=== PATIENT | male | born 1970 | race Caucasian/White ===

== ENCOUNTER 2019-02-04 08:28 | Emergency (ER) | payer MEDICAID ==
[~2019-02-04] VITALS: Ht 172.7 cm; Wt 86.2 kg
[2019-02-04 08:36] VITALS: BP 150/96
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
--- NOTE | 2019-02-04 08:45 | NUR ---
DR. BUTT EVALUATING AT BEDSIDE. PT UNWILLING TO ANSWER QUESTIONS.
--- NOTE | 2019-02-04 08:46 | NUR ---
PT WAS GIVEN A URINAL TO OBTAIN URINE SPECIMEN.
[2019-02-04] MEDS ORDERED: MORPHINE SULFATE 4 MG/ML SYR IM ONE (09:20)
[2019-02-04] MEDS ORDERED: cefTRIAXone 1,000 MG in LIDOCAINE MPF 1% - 5 mL VIAL 2.1 ML IM ONE (09:20)
--- NOTE | 2019-02-04 09:56 | NUR ---
PT RE-EVALUATED FOR KNEE PAIN. PT SLEEPING ON GURNEY.
--- NOTE | 2019-02-04 14:30 | NUR ---
Patient discharged with v/s stable. Written and verbal after care instructions given and explained. Patient alert, oriented and verbalized understanding of instructions. ASSISSTED BY WHEELCHAIR TO TAXI. All questions addressed prior to discharge. ID band removed. Patient advised to follow up with PMD. Rx of given. Patient educated on indication of medication including possible reaction and side effects. Opportunity to ask questions provided and answered.
[2019-02-04 14:40] VITALS: BP 148/92
== END 2019-02-04 14:30 | disposition home or self-care (01) ==
LOC: MED 08:28
DX: L03.116 Cellulitis of left lower limb (principal)
CPT/HCPCS: 96372; 99283; J0696; J2001; J2270

== ENCOUNTER 2019-02-04 18:08 | Emergency (ER) | payer MEDICAID ==
[~2019-02-04] VITALS: Ht 175.3 cm; Wt 81.6 kg
[2019-02-04 18:10] VITALS: BP 150/85
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
--- NOTE | 2019-02-04 18:31 | NUR ---
DR BUTT AT BEDSIDE FOR PT EVALUATION.
[2019-02-04 18:37] VITALS: BP 111/72
--- NOTE | 2019-02-04 18:37 | NUR ---
DR BUTT SIGNED PREBOOK FORM, PT CLEARED TO BE BOOKED
--- NOTE | 2019-02-04 18:37 | NUR ---
Patient discharged with v/s stable. Written and verbal after care instructions given and explained. Patient verbalized understanding. Wheel Chair Assisted with in custody. All questions addressed prior to discharge. Advised to follow up with PMD.
== END 2019-02-04 18:37 ==
LOC: MED 18:08
DX: L03.116 Cellulitis of left lower limb (principal); Z98.890 Other specified postprocedural states
CPT/HCPCS: 99283

== ENCOUNTER 2021-07-01 10:16 | Emergency (ER) | payer MEDICAID ==
[~2021-07-01] VITALS: Ht 175.3 cm; Wt 65.8 kg
[2021-07-01 10:18] VITALS: BP 127/83
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
--- NOTE | 2021-07-01 12:20 | NUR ---
PATIENT PROVIDED WITH LUNCH TRAY
[2021-07-01] MEDS: HYDROcodone/APAP 5/325 MG 1 TAB TAB PO ONE (12:23)
[2021-07-01] MEDS ORDERED: IBUP-1842 PO (12:27)
[2021-07-01 12:48] VITALS: BP 124/92
--- NOTE | 2021-07-01 12:55 | NUR ---
Patient discharged with v/s stable. Written and verbal after care instructions given and explained ABOUT ACUTE KNEE PAIN. Patient alert, oriented and verbalized understanding of instructions. Wheel Chair Assisted TO PARKING LOT. All questions addressed prior to discharge. ID band removed. Patient advised to follow up with PMD. Rx of IBUPROFEN given. Patient educated on indication of medication including possible reaction and side effects. Opportunity to ask questions provided and answered. PATIENT OFFERED BUS PASS BUT DECLINED.
== END 2021-07-01 12:55 | disposition home or self-care (01) ==
LOC: MED 10:16
DX: M25.561 Pain in right knee (principal); M25.562 Pain in left knee; M25.571 Pain in right ankle and joints of right foot; M25.572 Pain in left ankle and joints of left foot; V03.10XA Pedestrian on foot injured in collision with car, pick-up truck or van in traffic accident, initial encounter; Y93.89 Activity, other specified; Y92.89 Other specified places as the place of occurrence of the external cause; Y99.8 Other external cause status
CPT/HCPCS: 73562; 73610; 99284

== ENCOUNTER 2021-07-02 08:58 | Emergency (ER) | payer MEDICAID ==
[~2021-07-02] VITALS: Ht 175.3 cm; Wt 74.8 kg
[~2021-07-02 08:58] MED LIST: IBUP-1842 PO
[2021-07-02 09:05] VITALS: BP 127/77
[2021-07-02] MEDS ORDERED: KETOROLAC 60 MG/2 ML VIAL IM ONE ×2 (09:20)
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
[2021-07-02 09:33] VITALS: BP 127/77
--- NOTE | 2021-07-02 09:34 | NUR ---
PATIENT [facility]ICE DEPT. PATIENT EXAMINED BY DR. BUTT. PATIENT MEDICALLY CLEARED AND RELEASED IN CUSTODY IN STABLE CONDITION. ORIGINAL PRE-BOOK FORM GIVEN TO OFFICER ARNAV.
== END 2021-07-02 09:33 ==
LOC: MED 08:58
DX: M25.561 Pain in right knee (principal); M25.562 Pain in left knee; J45.909 Unspecified asthma, uncomplicated; Z02.89 Encounter for other administrative examinations; Z79.899 Other long term (current) drug therapy; Z98.890 Other specified postprocedural states; V09.9XXA Pedestrian injured in unspecified transport accident, initial encounter; Y93.89 Activity, other specified; Y92.89 Other specified places as the place of occurrence of the external cause; Y99.8 Other external cause status
CPT/HCPCS: 96372; 99283; J1885

== ENCOUNTER 2021-10-08 14:15 | Emergency (ER) | payer MEDICAID ==
[~2021-10-08] VITALS: Ht 175.3 cm; Wt 69.9 kg
[2021-10-08 15:00] VITALS: BP 129/75
[2021-10-08 16:28] LABS: BASOPHILS % (AUTO) 0.5 % (0.0-2.0); EOSINOPHILS # (AUTO) 0.3 K/uL (0-0.4); EOSINOPHILS % (AUTO) 4.2 % (0.0-4.0); HEMATOCRIT 34.7 % (36-52); HEMOGLOBIN 11.5 g/dL (12.0-18.0); LYMPHOCYTES # (AUTO) 1.3 K/uL (2.0-11.5); LYMPHOCYTES % (AUTO) 16.8 % (20.5-51.1); MEAN CORPUSCULAR HEMOGLOBIN 27 pg (27-31); MEAN CORPUSCULAR HGB CONC 33 g/dL (33-37); MEAN CORPUSCULAR VOLUME 81.1 fL (80-94); MONOCYTES # (AUTO) 0.5 K/uL (0.8-1.0); MONOCYTES % (AUTO) 6.3 % (1.7-9.3); NEUTROPHILS # (AUTO) 5.4 K/uL (1.8-7.7); NEUTROPHILS % (AUTO) 72.2 % (42.2-75.2); PLATELET COUNT (AUTO) 319 K/uL (140-450); RED BLOOD CELL COUNT(AUTO) 4.28 MIL/uL (4.20-6.10); RED CELL DISTRIBUTION WIDTH 15.6 % (11.6-13.7); WHITE BLOOD COUNT (AUTO) 7.5 K/uL (4.8-10.8)
[2021-10-08] MEDS ORDERED: MORPHINE SULFATE 4 MG/ML SYR IVP ONE (16:35)
[2021-10-08 16:54] LABS: ALBUMIN 3.4 g/dL (3.4-5.0); ANION GAP 8.4 (8-16); CARBON DIOXIDE 31.6 mmol/L (21-32); CREATININE 0.7 mg/dL (0.6-1.3); TOTAL BILIRUBIN 0.3 mg/dL (0.0-1.0)
[2021-10-08] MEDS ORDERED: MORPHINE SULFATE 4 MG/ML SYR ONE (18:09)
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
[2021-10-09] MEDS ORDERED: LIDOCAINE 5% 1 EA PATCH TP SCH (09:00)
== END 2021-10-08 18:24 ==
LOC: MED 14:15
DX: S22.41XA Multiple fractures of ribs, right side, initial encounter for closed fracture (principal); F20.9 Schizophrenia, unspecified; J45.909 Unspecified asthma, uncomplicated; Z02.89 Encounter for other administrative examinations; Z59.00 Homelessness unspecified; Z79.899 Other long term (current) drug therapy; V09.9XXA Pedestrian injured in unspecified transport accident, initial encounter; Y93.89 Activity, other specified; Y92.89 Other specified places as the place of occurrence of the external cause; Y99.8 Other external cause status
CPT/HCPCS: 36415; 71101; 80053; 85025; 96374; 99284; J2270

== ENCOUNTER 2021-12-16 00:48 | Emergency (ER) | payer MEDICAID ==
[~2021-12-16] VITALS: Ht 175.3 cm; Wt 65.3 kg
[2021-12-16 01:09] VITALS: BP 101/56
--- NOTE | 2021-12-16 01:12 | NUR ---
PT TAKEN TO LOBBY.
--- NOTE | 2021-12-16 01:50 | NUR ---
LAB AT BEDSIDE.
--- NOTE | 2021-12-16 01:53 | NUR ---
SWABS COLLECTED AND GIVEN TO RAMONA.
[2021-12-16 03:00] LABS: BASOPHILS # (AUTO) 0.1 K/uL (0.00-0.22); BASOPHILS % (AUTO) 0.8 % (0.0-2.0); EOSINOPHILS # (AUTO) 0.4 K/uL (0-0.4); HEMATOCRIT 39.5 % (36-52); HEMOGLOBIN 12.8 g/dL (12.0-18.0); LYMPHOCYTES % (AUTO) 30.7 % (20.5-51.1); MEAN CORPUSCULAR HEMOGLOBIN 26 pg (27-31); MEAN CORPUSCULAR HGB CONC 32 g/dL (33-37); MEAN CORPUSCULAR VOLUME 81.4 fL (80-94); MONOCYTES # (AUTO) 0.4 K/uL (0.8-1.0); MONOCYTES % (AUTO) 6.2 % (1.7-9.3); NEUTROPHILS # (AUTO) 3.6 K/uL (1.8-7.7); NEUTROPHILS % (AUTO) 56.3 % (42.2-75.2); PLATELET COUNT (AUTO) 334 K/uL (140-450); RED BLOOD CELL COUNT(AUTO) 4.86 MIL/uL (4.20-6.10); RED CELL DISTRIBUTION WIDTH 15.2 % (11.6-13.7); WHITE BLOOD COUNT (AUTO) 6.4 K/uL (4.8-10.8)
[2021-12-16 03:05] LABS: APPEARANCE,URINE CLEAR (CLEAR); BILIRUBIN,URINE NEGATIVE (NEGATIVE); BLOOD, URINE NEGATIVE (NEGATIVE); COLOR,URINE YELLOW (YELLOW); LEUKOCYTE ESTERASE ,URINE NEGATIVE (NEGATIVE); NITRITE, URINE NEGATIVE (NEGATIVE); UGLUCOSE NEGATIVE (NEGATIVE)
--- NOTE | 2021-12-16 03:10 | NUR ---
PER ERMD, CALL [facility] AROUND 0630 TO SET UP TELEPSYCH
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
[2021-12-16 03:18] LABS: BARBITURATE, URINE NEGATIVE ng/ml (NEG <=200); BENZODIAZEPINE, URINE NEGATIVE ng/mL (NEG <=200); CANNABINOID, URINE NEGATIVE ng/mL (NEG <=50); COCAINE, URINE NEGATIVE ng/mL (NEG <=300); OPIATE, URINE NEGATIVE ng/mL (NEG <=2000); PHENCYCLIDINE SCREEN,URINE NEGATIVE ng/mL (NEG <=25)
--- NOTE | 2021-12-16 03:24 | NUR ---
FACESHEET FAXED TO [facility] TELEPSYCH
[2021-12-16 03:28] LABS: ALBUMIN 3.6 g/dL (3.4-5.0); ANION GAP 9.2 (8-16); ASPARTATE AMINOTRANSFERASE 16 U/L (15-37); CARBON DIOXIDE 29.6 mmol/L (21-32); CHLORIDE 104 mmol/L (98-107); CREATININE 0.7 mg/dL (0.6-1.3); GFR ARICAN-AMERICAN 153 mL/min (>90); GLUCOSE 85 mg/dL (74-106); POTASSIUM 3.8 mmol/L (3.5-5.1); SODIUM SERUM 139 mmol/L (136-145); TOTAL BILIRUBIN 0.2 mg/dL (0.0-1.0); UREA NITROGEN, BLOOD 25 mg/dL (7-18)
[2021-12-16 03:31] LABS: ACETAMINOPHEN < 0.5 ug/ml (10-30); SALICYLATE < 2.8 mg/dL (2.8-20.0)
--- NOTE | 2021-12-16 06:11 | NUR ---
[facility] CALLED AND ARRANGED TELEPSYCH AT 0717
--- NOTE | 2021-12-16 06:19 | NUR ---
CLINICALS AND FACESHEET FAXED TO [facility]
--- NOTE | 2021-12-16 07:17 | NUR ---
Report and continuation of care received from JAZMIN Cortes.
--- NOTE | 2021-12-16 08:15 | NUR ---
Breakfast mealtray at bedside.
--- NOTE | 2021-12-16 08:40 | NUR ---
Patient on Telepsych call with Dr. Tracey
[2021-12-16] MEDS ORDERED: DIVALPROEX 500 MG TABEC PO SCH (08:50)
--- NOTE | 2021-12-16 09:06 | NUR ---
Patient back asleep with both eyes closed. VSS; respirations even/unlabored. Bed locked in lowest position, side rails x 2.
--- NOTE | 2021-12-16 09:24 | NUR ---
Transferred to bed 06.
--- NOTE | 2021-12-16 09:27 | NUR ---
Report given to NATE Gifford.
--- NOTE | 2021-12-16 09:28 | NUR ---
REPORT RECEIVED FROM JAZMIN VALENZUELA FOR PATIENT CONTINUITY OF CARE.
[2021-12-16] MEDS: risperiDONE 1 MG TAB PO SCH (09:31)
--- NOTE | 2021-12-16 10:14 | NUR ---
PATIENT RESTING IN BED, RESPIRATIONS EVEN AND UNLABORED. SAFETY PRECAUTIONS PUT INTO PLACE. WILL CONTINUE TO MONITOR.
--- NOTE | 2021-12-16 11:50 | NUR ---
PATIENT PROVIDED WITH LUNCH TRAY AT BEDSIDE
--- NOTE | 2021-12-16 14:13 | NUR ---
DR. COVARRUBIAS EVALUATING PATIENT AT BEDSIDE.
--- NOTE | 2021-12-16 14:20 | NUR ---
PT IS MEDICALLY CLEARED BY DR COVARRUBIAS
--- NOTE | 2021-12-16 16:50 | NUR ---
PROVIDED PATIENT W/ BEDSIDE URINAL.
--- NOTE | 2021-12-16 18:00 | NUR ---
PATIENT PROVIDED WITH DINNER TRAY AT BEDSIDE.
--- NOTE | 2021-12-16 19:21 | NUR ---
Pt report given to JAZMIN CHOWDHURY. Transfer of care at this time.
--- NOTE | 2021-12-16 19:23 | NUR ---
REPORT RECEIVED FOR CONTINUITY OF CARE.
--- NOTE | 2021-12-16 19:56 | NUR ---
PATIENT CURRENTLY RESTING FLAT IN BED. WILL CONTINUE TO MONITOR.
--- NOTE | 2021-12-16 23:57 | NUR ---
PT REST COMFORTABLY IN BED IN SUPINE POSITION, WITH REGULAR AND EQUAL UNLABORED RESPIRATIONS. WILL CONTINUE TO MONITOR.
--- NOTE | 2021-12-17 04:43 | NUR ---
PT AMBULATED TO RESTROOM WITH ESCORT AND TAKEN BACK TO BED. SAFETY ASSESSED, WILL CONTINUE TO MONITOR.
--- NOTE | 2021-12-17 05:18 | NUR ---
PT REST COMFORTABLY IN BED IN SUPINE POSITIONING, WITH REGULAR AND EQUAL UNLABORED RESPIRATIONS. ROOM ASSESSED FOR SAFETY. WILL CONTINUE TO MONITOR.
--- NOTE | 2021-12-17 07:08 | NUR ---
EMPTIED 250 ML OF CLEAR URINE. PATIENT BACK TO RESTING IN BED. WILL CONTINUE TO MONITOR.
--- NOTE | 2021-12-17 07:14 | NUR ---
REPORT GIVEN TO SHIKHA SULLIVAN FOR CONTINUITY OF CARE.
--- NOTE | 2021-12-17 07:15 | NUR ---
REPORT RECEIVED FROM JAZMIN CHOWDHURY FOR PATIENT CONTINUITY OF CARE.
--- NOTE | 2021-12-17 08:05 | NUR ---
PATIENT PROVIDED W/ BREAKFAST TRAY AT BEDSIDE.
--- NOTE | 2021-12-17 08:30 | NUR ---
PATIENT COMPLETED 50% OF BREAKFAST TRAY AT THIS TIME.
[2021-12-17] MEDS: risperiDONE 1 MG TAB PO SCH (09:35)
--- NOTE | 2021-12-17 09:59 | NUR ---
DR. Da Silva REEVALUATING PATIENT VIA TELEPSYCH
--- NOTE | 2021-12-17 10:00 | NUR ---
PT PLACED ON 5150 HOLD, DTS BY DR COVARRUBIAS. [address]
--- NOTE | 2021-12-17 11:02 | NUR ---
OBTAINED VERBAL ORDER FOR Q4 HRS VS.
--- NOTE | 2021-12-17 11:47 | NUR ---
PATIENT RESTING COMFORTABLY IN BED, NO SIGNS OF DISTRESS NOTED AT THIS TIME.
--- NOTE | 2021-12-17 12:05 | NUR ---
PATIENT PROVIDED W/ LUNCH TRAY AT BEDSIDE.
--- NOTE | 2021-12-17 13:55 | NUR ---
SPOKE W/ BILL FROM [place]. PENDING OBTAINING A BED AND PHONE CALL W/ UPDATE.
[2021-12-17] MEDS ORDERED: ACETAMINOPHEN EXTRA STRENGTH 500 MG TAB PO ONE (14:05)
--- NOTE | 2021-12-17 14:26 | NUR ---
Patient has been accepted to [facility] [address]. Patient is going to room 255-A Accepting physician - Dr. Torres Nurse to nurse report - [phone] Ready to accept patient upon transfer once ready
--- NOTE | 2021-12-17 14:44 | NUR ---
REPORT CALLED TO JAZMIN LI FROM [facility] FOR PATIENT TRANSFER
[2021-12-17 15:05] VITALS: BP 106/54
--- NOTE | 2021-12-17 15:05 | NUR ---
Patient to be transferred to [facility]. Is being transferred due to 5150 DTS. Receiving facility has accepting physician and available space. ER physician has signed transfer form. Patient or responsible constitution party has agreed to transfer and signed form. Patient belongings inventoried and will be sent with patient. Copy of nursing notes, lab reports, Physicians Orders to be sent with patient. Report called to JAZMIN LI at receiving facility. [facility] ambulance service has been called for transfer. ETA is 1 HR.
--- NOTE | 2021-12-17 15:06 | NUR ---
The patient's care was reviewed and supervised by Tiffanie Morris RN.
== END 2021-12-17 15:05 ==
LOC: MED 00:48
DX: R45.851 Suicidal ideations (principal); Z20.822 Contact with and (suspected) exposure to COVID-19; F29 Unspecified psychosis not due to a substance or known physiological condition; F15.10 Other stimulant abuse, uncomplicated; J45.909 Unspecified asthma, uncomplicated; F20.9 Schizophrenia, unspecified; F32.9 Major depressive disorder, single episode, unspecified; F17.200 Nicotine dependence, unspecified, uncomplicated; Z76.0 Encounter for issue of repeat prescription; Z79.899 Other long term (current) drug therapy
CPT/HCPCS: 36415; 80053; 80305; 81003; 84484; 85025; 87426; 99285; G0480; G0482; U0003

== ENCOUNTER 2021-12-26 15:55 | Emergency (ER) | payer MEDICAID ==
[~2021-12-26] VITALS: Ht 175.3 cm; Wt 70.9 kg
[2021-12-26 16:00] VITALS: BP 144/78
--- NOTE | 2021-12-26 16:10 | NUR ---
AMBULATED TO ER BED 6
--- NOTE | 2021-12-26 16:26 | NUR ---
PT'S URINE TAKEN BY LAB
--- NOTE | 2021-12-26 16:32 | NUR ---
DR PIMENTEL AT BEDSIDE.
[2021-12-26] MEDS ORDERED: VALPROIC ACID 250 MG/5 ML UDC PO STA (16:37)
[2021-12-26] MEDS ORDERED: IBUPROFEN 600 MG TAB PO ONE (16:40)
[2021-12-26] MEDS ORDERED: busPIRone 5 MG TAB PO SCH (16:40)
[2021-12-26] MEDS ORDERED: ACETAMINOPHEN EXTRA STRENGTH 500 MG TAB PO ONE (16:40)
--- NOTE | 2021-12-26 17:02 | NUR ---
51 Y/O MALE BIB SELF C/O KNEE/SHOULDER PAIN X 1 YEAR RATED 10/10. PATIENT STATED HE WANTS TO HURT HIMSELF AND OTHERS SINCE THIS MORNING. SEEN HERE FOR SI 11/18/21.
[2021-12-26 17:06] LABS: BASOPHILS % (AUTO) 0.4 % (0.0-2.0); EOSINOPHILS # (AUTO) 0.3 K/uL (0-0.4); HEMATOCRIT 34.6 % (36-52); HEMOGLOBIN 11.3 g/dL (12.0-18.0); LYMPHOCYTES # (AUTO) 1.5 K/uL (2.0-11.5); LYMPHOCYTES % (AUTO) 27.4 % (20.5-51.1); MEAN CORPUSCULAR HEMOGLOBIN 27 pg (27-31); MEAN CORPUSCULAR HGB CONC 33 g/dL (33-37); MEAN CORPUSCULAR VOLUME 80.9 fL (80-94); MONOCYTES # (AUTO) 0.3 K/uL (0.8-1.0); MONOCYTES % (AUTO) 6.5 % (1.7-9.3); NEUTROPHILS # (AUTO) 3.2 K/uL (1.8-7.7); NEUTROPHILS % (AUTO) 59.7 % (42.2-75.2); PLATELET COUNT (AUTO) 247 K/uL (140-450); RED BLOOD CELL COUNT(AUTO) 4.27 MIL/uL (4.20-6.10); RED CELL DISTRIBUTION WIDTH 15.6 % (11.6-13.7); WHITE BLOOD COUNT (AUTO) 5.4 K/uL (4.8-10.8)
[2021-12-26 17:24] LABS: ALBUMIN 3.4 g/dL (3.4-5.0); ANION GAP 9.2 (8-16); ASPARTATE AMINOTRANSFERASE 12 U/L (15-37); CARBON DIOXIDE 30.7 mmol/L (21-32); CHLORIDE 105 mmol/L (98-107); CREATININE 0.7 mg/dL (0.6-1.3); GFR ARICAN-AMERICAN 153 mL/min (>90); GLUCOSE 105 mg/dL (74-106); POTASSIUM 3.9 mmol/L (3.5-5.1); SODIUM SERUM 141 mmol/L (136-145); TOTAL BILIRUBIN 0.2 mg/dL (0.0-1.0); UREA NITROGEN, BLOOD 19 mg/dL (7-18)
[2021-12-26 19:16] LABS: BARBITURATE, URINE NEGATIVE ng/ml (NEG <=200); BENZODIAZEPINE, URINE POSITIVE ng/mL (NEG <=200); CANNABINOID, URINE NEGATIVE ng/mL (NEG <=50); COCAINE, URINE NEGATIVE ng/mL (NEG <=300); OPIATE, URINE NEGATIVE ng/mL (NEG <=2000); PHENCYCLIDINE SCREEN,URINE NEGATIVE ng/mL (NEG <=25)
--- NOTE | 2021-12-26 19:22 | NUR ---
Pt report given to NATE KHAN. Transfer of care at this time.
--- NOTE | 2021-12-26 20:46 | NUR ---
PSYCH SPOKE WITH PT VIA VIDEO, AND ER . PLAN TO DX PT WITH MEDS . AWAITING DX PAPERWORK. PT IN BED , PROVIDED SANDWICH FOR PT
[2021-12-26] MEDS ORDERED: RISP0.5T3 PO ×2 (20:48→21:01)
[2021-12-26] MEDS ORDERED: BUS5 PO ×2 (20:48→21:01)
[2021-12-26] MEDS ORDERED: IBUP-2213 PO ×2 (20:48→21:01)
[2021-12-26] MEDS ORDERED: VALP-22 GT ×2 (20:48→21:01)
[2021-12-26 21:06] VITALS: BP 103/55
--- NOTE | 2021-12-26 21:06 | NUR ---
PT GIVEN DX PAPER WORK AND BUS PASS. PT ABLE TO AMBULATE WITHOUT ASST.
== END 2021-12-26 21:06 | disposition home or self-care (01) ==
LOC: MED 15:55
DX: R45.851 Suicidal ideations (principal); Z20.822 Contact with and (suspected) exposure to COVID-19; G89.29 Other chronic pain; M25.561 Pain in right knee; M25.562 Pain in left knee; M25.511 Pain in right shoulder; M25.512 Pain in left shoulder; F32.9 Major depressive disorder, single episode, unspecified
CPT/HCPCS: 36415; 80053; 80305; 81002; 85025; 87426; 99284; G0482; U0003

== ENCOUNTER 2022-01-12 23:32 | Emergency (ER) | payer MEDICAID ==
[~2022-01-12] VITALS: Ht 175.3 cm; Wt 66.7 kg
[~2022-01-12 23:32] MED LIST changes: +BUS5 PO; +IBUP-2213 PO; +RISP0.5T3 PO; +VALP-22 GT
[2022-01-12 23:47] VITALS: BP 133/65
--- NOTE | 2022-01-13 | NUR ---
pt taken to er bed 05
--- NOTE | 2022-01-13 00:06 | NUR ---
PT'S BELONGINGS COLLECED AND TAKEN BY SECURITY FOR STORAGE IN SAFE.
[2022-01-13] MEDS ORDERED: ZIPRASIDONE MESYLATE 20 MG/ML VIAL IM ONE ×3 (00:10→04:55)
[2022-01-13] MEDS ORDERED: NACL 0.9% 1,000 ML IV ONE (00:10)
--- NOTE | 2022-01-13 01:01 | NUR ---
20G IV CATH PLACED LEFT AC . LABS OBTAINED SENT TO LAB
[2022-01-13 01:11] LABS: BASOPHILS % (AUTO) 0.6 % (0.0-2.0); EOSINOPHILS # (AUTO) 0.3 K/uL (0-0.4); EOSINOPHILS % (AUTO) 5.8 % (0.0-4.0); HEMATOCRIT 37.3 % (36-52); HEMOGLOBIN 12.7 g/dL (12.0-18.0); LYMPHOCYTES # (AUTO) 1.7 K/uL (2.0-11.5); LYMPHOCYTES % (AUTO) 31.4 % (20.5-51.1); MEAN CORPUSCULAR HEMOGLOBIN 28 pg (27-31); MEAN CORPUSCULAR HGB CONC 34 g/dL (33-37); MEAN CORPUSCULAR VOLUME 80.6 fL (80-94); MONOCYTES # (AUTO) 0.4 K/uL (0.8-1.0); MONOCYTES % (AUTO) 7.4 % (1.7-9.3); NEUTROPHILS # (AUTO) 2.9 K/uL (1.8-7.7); NEUTROPHILS % (AUTO) 54.8 % (42.2-75.2); PLATELET COUNT (AUTO) 252 K/uL (140-450); RED BLOOD CELL COUNT(AUTO) 4.62 MIL/uL (4.20-6.10); RED CELL DISTRIBUTION WIDTH 15.5 % (11.6-13.7); WHITE BLOOD COUNT (AUTO) 5.3 K/uL (4.8-10.8)
[2022-01-13 01:28] LABS: ACETAMINOPHEN < 0.5 ug/ml (10-30); ALBUMIN 3.6 g/dL (3.4-5.0); ANION GAP 10.7 (8-16); ASPARTATE AMINOTRANSFERASE 17 U/L (15-37); CARBON DIOXIDE 26.8 mmol/L (21-32); CHLORIDE 105 mmol/L (98-107); CREATININE 0.9 mg/dL (0.6-1.3); GFR ARICAN-AMERICAN 114 mL/min (>90); GLUCOSE 100 mg/dL (74-106); POTASSIUM 3.5 mmol/L (3.5-5.1); SALICYLATE < 2.8 mg/dL (2.8-20.0); SODIUM SERUM 139 mmol/L (136-145); TOTAL BILIRUBIN 0.3 mg/dL (0.0-1.0); UREA NITROGEN, BLOOD 23 mg/dL (7-18)
--- NOTE | 2022-01-13 02:03 | NUR ---
PT RESTING AND ASLEEP . BEDRAILS UP
[2022-01-13 04:37] LABS: APPEARANCE,URINE CLEAR (CLEAR); BILIRUBIN,URINE NEGATIVE (NEGATIVE); BLOOD, URINE NEGATIVE (NEGATIVE); COLOR,URINE YELLOW (YELLOW); LEUKOCYTE ESTERASE ,URINE NEGATIVE (NEGATIVE); NITRITE, URINE NEGATIVE (NEGATIVE); UGLUCOSE NEGATIVE (NEGATIVE)
--- NOTE | 2022-01-13 04:47 | NUR ---
URINE COLLECTED AND SENT TO LAB. PT IS AWAKE AND EATING
--- NOTE | 2022-01-13 05:07 | NUR ---
medicated asper ERMDs order, tolerated well.
--- NOTE | 2022-01-13 07:00 | NUR ---
Patient still sleeping comfortably in bed. Vital Signs within normal limits. Respirations even and unlabored.
[2022-01-13 07:20] LABS: BARBITURATE, URINE NEGATIVE ng/ml (NEG <=200)
[2022-01-13 07:21] LABS: BENZODIAZEPINE, URINE NEGATIVE ng/mL (NEG <=200); CANNABINOID, URINE NEGATIVE ng/mL (NEG <=50); COCAINE, URINE NEGATIVE ng/mL (NEG <=300); OPIATE, URINE NEGATIVE ng/mL (NEG <=2000); PHENCYCLIDINE SCREEN,URINE NEGATIVE ng/mL (NEG <=25)
--- NOTE | 2022-01-13 07:28 | NUR ---
Report given to Sourav WU
--- NOTE | 2022-01-13 07:28 | NUR ---
Report and continuation of care received from JAZMIN Jimenez.
--- NOTE | 2022-01-13 07:33 | NUR ---
Received patient resting in low-fowlers with both eyes closed. Patient awaken, A&Ox4 states he still wants to hurt himself; states hearing voices.
--- NOTE | 2022-01-13 07:59 | NUR ---
PT IS MEDICALLY CLEARED BY DR ROSALES AT THIS TIME
--- NOTE | 2022-01-13 08:48 | NUR ---
Patient sitting upright completing breakfast mealtray
--- NOTE | 2022-01-13 10:39 | NUR ---
Patient awake, on Telepsych call with Dr. Tracey
[2022-01-13] MEDS ORDERED: OLANZapine 5 MG ODT PO ONE (10:45)
--- NOTE | 2022-01-13 11:20 | NUR ---
Patient agitated in bed; speaking to self in incoherent sentences. Reoriented to situation.
[2022-01-13] MEDS ORDERED: LORazepam 1 MG TAB PO ONE (11:30)
--- NOTE | 2022-01-13 12:11 | NUR ---
Patient awake completing meal at this time.
--- NOTE | 2022-01-13 14:25 | NUR ---
Patient with both eyes closed in low-fowlers with blanket over self. Respirations even/unlabored. Bed locked in lowest position, side rails x 1.
--- NOTE | 2022-01-13 16:45 | NUR ---
Patient resting comfortably in bed low-fowlers with both eyes closed. Vital Signs within normal limits. Respirations even and unlabored.
--- NOTE | 2022-01-13 18:05 | NUR ---
Patient awake completing meal at this time.
--- NOTE | 2022-01-13 19:10 | NUR ---
Report and transfer of care endorsed to NATE Treviño.
--- NOTE | 2022-01-13 21:17 | NUR ---
Patient appears to be resting comfortably in bed. Vital Signs within normal limits. Respirations even and unlabored.
--- NOTE | 2022-01-14 03:00 | NUR ---
Patient sleeping in bed in a supine position. blanket over eyes. Vital Signs within normal limits. Respirations even and unlabored. x2 side rails up for safety
--- NOTE | 2022-01-14 06:16 | NUR ---
PROVIDED PT NEW URINAL. ALL NEEDS MET AT THIS TIME
--- NOTE | 2022-01-14 07:16 | NUR ---
Pt report given to NELY. Transfer of care at this time.
--- NOTE | 2022-01-14 07:20 | NUR ---
RECEIVED REPORT FROM NATE WAKEFIELD FOR TRANSFER OF CARE
--- NOTE | 2022-01-14 08:22 | NUR ---
PATIENT SLEEPING BEDSIDE. NO SIGNS OF DISTRESS NOTED. WILL CONTINUE TO MONITOR
--- NOTE | 2022-01-14 08:47 | NUR ---
PT PROVIDED WITH FRESH LINEN AND BREAKFAST BEDSIDE
[2022-01-14 08:53] VITALS: BP 141/99
--- NOTE | 2022-01-14 09:53 | NUR ---
PER DR. Callaway FROM TELEPSY RECOMMENDS TO PLACE PATIENT ON 5150 HOLD DUE TO DTS. ABRIL HUIZAR CONTACTED
--- NOTE | 2022-01-14 10:39 | NUR ---
pd bedside evaluating pt
--- NOTE | 2022-01-14 10:42 | NUR ---
PER OFFICER NATO FROM [place] [employer] PATIENT DOES NOT MEET CRITERA TO BE PLACED ON 5150 HOLD.
--- NOTE | 2022-01-14 11:50 | NUR ---
pt provided with lunch tray bedside
--- NOTE | 2022-01-14 12:10 | NUR ---
PATIENT JUST AMBUL[facility]
--- NOTE | 2022-01-14 12:13 | NUR ---
Patient discharged with v/s stable. Patient verbalized understanding. Ambulatory with steady gait. All questions addressed prior to discharge. Advised to follow up with PMD. PATIENT LEFT WITH DISCHARGE PAPERWORK, HOMELESS PACKET, BUS PASS, AND MENTAL HEALTH RESOURCE PACKET. ER MD MADE AWARE
[2022-01-15] MEDS ORDERED: OLANZapine 5 MG ODT PO SCH (09:00)
== END 2022-01-14 12:11 | disposition home or self-care (01) ==
LOC: MED 23:32
DX: F20.9 Schizophrenia, unspecified (principal); F15.959 Other stimulant use, unspecified with stimulant-induced psychotic disorder, unspecified; R45.851 Suicidal ideations; F99 Mental disorder, not otherwise specified; R45.850 Homicidal ideations; J45.909 Unspecified asthma, uncomplicated; F17.210 Nicotine dependence, cigarettes, uncomplicated; F15.10 Other stimulant abuse, uncomplicated; Z59.00 Homelessness unspecified; Z76.5 Malingerer [conscious simulation]; Z79.899 Other long term (current) drug therapy
CPT/HCPCS: 36415; 80053; 80305; 81003; 85025; 93005; 96360; 96372; 99285; G0480; G0482; J3486; J7030

== ENCOUNTER 2022-02-06 18:49 | Emergency (ER) | payer MEDICAID ==
[~2022-02-06] VITALS: Ht 175.3 cm; Wt 74.8 kg
[2022-02-06 19:18] VITALS: BP 134/83
--- NOTE | 2022-02-06 19:26 | NUR ---
TO CHAIR C FOLLOWING TRIAGE
--- NOTE | 2022-02-06 20:22 | NUR ---
Blood for labwork drawn from right arm per containers sales representative. Patient tolerated well.
--- NOTE | 2022-02-06 20:23 | NUR ---
Dr. Coon at Chair C to exam patient.
--- NOTE | 2022-02-06 20:23 | NUR ---
Lauri suárez in [facility] - 02/06/22 at [address] Coon examining patient.
[2022-02-06] MEDS ORDERED: LORazepam 1 MG TAB PO ONE (20:25)
[2022-02-06 20:34] LABS: BASOPHILS % (AUTO) 0.3 % (0.0-2.0); EOSINOPHILS # (AUTO) 0.4 K/uL (0-0.4); EOSINOPHILS % (AUTO) 3.9 % (0.0-4.0); HEMATOCRIT 41.1 % (36-52); HEMOGLOBIN 13.5 g/dL (12.0-18.0); LYMPHOCYTES # (AUTO) 1.4 K/uL (2.0-11.5); LYMPHOCYTES % (AUTO) 13.9 % (20.5-51.1); MEAN CORPUSCULAR HEMOGLOBIN 27 pg (27-31); MEAN CORPUSCULAR HGB CONC 33 g/dL (33-37); MEAN CORPUSCULAR VOLUME 81.4 fL (80-94); MONOCYTES # (AUTO) 0.6 K/uL (0.8-1.0); MONOCYTES % (AUTO) 5.9 % (1.7-9.3); NEUTROPHILS # (AUTO) 7.5 K/uL (1.8-7.7); PLATELET COUNT (AUTO) 303 K/uL (140-450); RED BLOOD CELL COUNT(AUTO) 5.04 MIL/uL (4.20-6.10); RED CELL DISTRIBUTION WIDTH 16.1 % (11.6-13.7); WHITE BLOOD COUNT (AUTO) 9.9 K/uL (4.8-10.8)
--- NOTE | 2022-02-06 20:51 | NUR ---
Patient ambulated to bed 7.
[2022-02-06 20:53] LABS: ALBUMIN 4.1 g/dL (3.4-5.0); ASPARTATE AMINOTRANSFERASE 20 U/L (15-37); CARBON DIOXIDE 31.2 mmol/L (21-32); CHLORIDE 101 mmol/L (98-107); CREATININE 0.9 mg/dL (0.6-1.3); GFR ARICAN-AMERICAN 114 mL/min (>90); GLUCOSE 88 mg/dL (74-106); POTASSIUM 4.2 mmol/L (3.5-5.1); SODIUM SERUM 138 mmol/L (136-145); TOTAL BILIRUBIN 0.3 mg/dL (0.0-1.0); UREA NITROGEN, BLOOD 19 mg/dL (7-18)
[2022-02-06 20:54] LABS: ACETAMINOPHEN < 0.5 ug/ml (10-30); SALICYLATE < 2.8 mg/dL (2.8-20.0)
[2022-02-06 21:09] LABS: BARBITURATE, URINE NEGATIVE ng/ml (NEG <=200); BENZODIAZEPINE, URINE NEGATIVE ng/mL (NEG <=200); CANNABINOID, URINE NEGATIVE ng/mL (NEG <=50); COCAINE, URINE NEGATIVE ng/mL (NEG <=300); OPIATE, URINE NEGATIVE ng/mL (NEG <=2000); PHENCYCLIDINE SCREEN,URINE NEGATIVE ng/mL (NEG <=25)
--- NOTE | 2022-02-06 21:20 | NUR ---
51 YO HOMELESS M BIBS C/O SI WITH PLAN TO OD IF SLEEPS ON STREETS SHANNON PT STATES PAST ATTEMPTS OF SI BY OD. PMH: ASTHMA, SCHIZOPHRENIA MEDS: DENIES NKDA
--- NOTE | 2022-02-07 00:19 | NUR ---
Patient appears to be resting comfortably in bed. Respirations even and unlabored.
--- NOTE | 2022-02-07 04:00 | NUR ---
PT WAS SLEEPING IN BED HE WOKE UP AND ASKED FOR FOOD AND DRINK. PT ALSO USED THE URININAL AT BEDSIDE AND APPEARED TO BE ITCHING AND RESTLESS. PT WAS GIVEN ANOTHER BLANKET AND AFTER EATING DRINKING AND ELMINATION , HE WENT BACK TO SLEEP. 1:1 SITTER AT BEDSIDE.
--- NOTE | 2022-02-07 06:30 | NUR ---
PT IN BED ASLEEP NO S/S OF PAIN OR DISTRESS NOTED.
--- NOTE | 2022-02-07 07:19 | NUR ---
ASSUMED PATIENT CARE, CONCUR TO PRIOR NURSING ASSESSMENT. [place] [facility] [facility] MONITORING ONGOING. VS WNL.
--- NOTE | 2022-02-07 10:55 | NUR ---
Lauri suárez in [facility] - 02/07/22 at 1055 by [id number] KATELYN NINO
--- NOTE | 2022-02-07 10:55 | NUR ---
PATIENT SPEAKING WITH TELE-PSYCH DR JEAN. DISPO: ADMIT TO INPATIENT PSYCH FOR FURTHER MANAGEMENT.
--- NOTE | 2022-02-07 13:49 | NUR ---
REPORT RECIEVED FROM MOISÉS WU. PT IS ON A 5150. IN BED RESTING AND AWAKE. PT IS ENGAGING APPROPRIATELY. ONE SIDE RAIL IS UP, PT AMBUALTE TO BATHROOM WITH A STEADY GAIT. Q15 ROUNDS CURRENT
--- NOTE | 2022-02-07 14:48 | NUR ---
Packet has been fax to the following facilities [facility] no beds [facility]
--- NOTE | 2022-02-07 15:38 | NUR ---
[facility]
--- NOTE | 2022-02-07 15:45 | NUR ---
[facility] TRANSPORT ETA OF 60MINS
--- NOTE | 2022-02-07 16:22 | NUR ---
CALLED REPORT TO WALDO AT [facility]. BED ASSIGNMENT OF 105A GIVEN. AWAITING TRANSPORTION
--- NOTE | 2022-02-07 18:05 | NUR ---
[facility] EN R[facility]TE
--- NOTE | 2022-02-07 19:29 | NUR ---
[facility] AT BEDSIDE FOR TRANSPORT
[2022-02-07 19:41] VITALS: BP 147/85
--- NOTE | 2022-02-07 19:41 | NUR ---
Patient to be transferred to [facility]. Is being transferred due to HIGHER LEVEL OF CARE. Receiving facility has accepting physician and available space. ER physician has signed transfer form. Patient or responsible constitution party has agreed to transfer and signed form. Patient belongings inventoried and will be sent with patient. Copy of nursing notes, lab reports, EKG, Physicians Orders and X-rays to be sent with patient. Report called to POOJA at receiving facility. [facility] ambulance service has been called for transfer. ETA is 2100.
--- NOTE | 2022-02-07 19:41 | NUR ---
PT TAKEN BY [facility] TRANSPORT TO [facility]
--- NOTE | 2022-02-07 20:02 | NUR ---
The patient's care was reviewed and supervised by Lacey Downey RN.
[2022-02-07] MEDS ORDERED: OLANZapine 5 MG ODT PO SCH (21:00)
[2022-02-07] MEDS ORDERED: DIVALPROEX 500 MG TABEC PO SCH (21:00)
[2022-02-07] MEDS ORDERED: BENZTROPINE 1 MG TAB PO SCH (21:00)
== END 2022-02-07 19:41 ==
LOC: MED 18:49
DX: R45.851 Suicidal ideations (principal); Z20.822 Contact with and (suspected) exposure to COVID-19; F23 Brief psychotic disorder; J45.909 Unspecified asthma, uncomplicated; Z79.1 Long term (current) use of non-steroidal anti-inflammatories (NSAID); Z79.899 Other long term (current) drug therapy; F25.9 Schizoaffective disorder, unspecified; F15.10 Other stimulant abuse, uncomplicated
CPT/HCPCS: 36415; 80053; 80305; 85025; 87426; 87635; 99285; C9803; G0480; G0482

== ENCOUNTER 2022-02-27 17:55 | Emergency (ER) | payer MEDICAID ==
[~2022-02-27] VITALS: Ht 175.3 cm; Wt 71.0 kg
[2022-02-27 18:20] VITALS: BP 131/71
--- NOTE | 2022-02-27 18:29 | NUR ---
PT AMB TO BED 5.
--- NOTE | 2022-02-27 18:34 | NUR ---
Lab at bedside.
[2022-02-27 18:49] LABS: BASOPHILS % (AUTO) 0.4 % (0.0-2.0); EOSINOPHILS # (AUTO) 0.4 K/uL (0-0.4); EOSINOPHILS % (AUTO) 6.4 % (0.0-4.0); HEMATOCRIT 38.3 % (36-52); HEMOGLOBIN 12.6 g/dL (12.0-18.0); LYMPHOCYTES # (AUTO) 1.7 K/uL (2.0-11.5); LYMPHOCYTES % (AUTO) 31.3 % (20.5-51.1); MEAN CORPUSCULAR HEMOGLOBIN 27 pg (27-31); MEAN CORPUSCULAR HGB CONC 33 g/dL (33-37); MEAN CORPUSCULAR VOLUME 81.7 fL (80-94); MONOCYTES # (AUTO) 0.5 K/uL (0.8-1.0); NEUTROPHILS # (AUTO) 2.9 K/uL (1.8-7.7); NEUTROPHILS % (AUTO) 52.9 % (42.2-75.2); PLATELET COUNT (AUTO) 343 K/uL (140-450); RED BLOOD CELL COUNT(AUTO) 4.68 MIL/uL (4.20-6.10); RED CELL DISTRIBUTION WIDTH 15.8 % (11.6-13.7); WHITE BLOOD COUNT (AUTO) 5.5 K/uL (4.8-10.8)
--- NOTE | 2022-02-27 19:01 | NUR ---
MARILEE specimen obtained and walked to lab.
--- NOTE | 2022-02-27 19:07 | NUR ---
Obtained urine sample and walked to lab. Handed to CPT. Kim
[2022-02-27 19:28] LABS: ALBUMIN 3.7 g/dL (3.4-5.0); ANION GAP 10.6 (8-16); ASPARTATE AMINOTRANSFERASE 27 U/L (15-37); CARBON DIOXIDE 30.6 mmol/L (21-32); CHLORIDE 104 mmol/L (98-107); CREATININE 0.8 mg/dL (0.6-1.3); GFR ARICAN-AMERICAN 131 mL/min (>90); GLUCOSE 107 mg/dL (74-106); POTASSIUM 4.2 mmol/L (3.5-5.1); SODIUM SERUM 141 mmol/L (136-145); TOTAL BILIRUBIN 0.3 mg/dL (0.0-1.0); UREA NITROGEN, BLOOD 16 mg/dL (7-18)
[2022-02-27 19:35] LABS: SALICYLATE < 2.8 mg/dL (2.8-20.0)
[2022-02-27 19:37] LABS: ACETAMINOPHEN < 0.5 ug/ml (10-30)
[2022-02-27 19:47] LABS: APPEARANCE,URINE CLEAR (CLEAR); BILIRUBIN,URINE NEGATIVE (NEGATIVE); BLOOD, URINE NEGATIVE (NEGATIVE); COLOR,URINE YELLOW (YELLOW); LEUKOCYTE ESTERASE ,URINE NEGATIVE (NEGATIVE); NITRITE, URINE NEGATIVE (NEGATIVE); UGLUCOSE NEGATIVE (NEGATIVE)
[2022-02-27 20:05] LABS: BARBITURATE, URINE NEGATIVE ng/ml (NEG <=200)
[2022-02-27 20:06] LABS: BENZODIAZEPINE, URINE NEGATIVE ng/mL (NEG <=200); CANNABINOID, URINE NEGATIVE ng/mL (NEG <=50); COCAINE, URINE NEGATIVE ng/mL (NEG <=300); OPIATE, URINE NEGATIVE ng/mL (NEG <=2000); PHENCYCLIDINE SCREEN,URINE NEGATIVE ng/mL (NEG <=25)
--- NOTE | 2022-02-27 21:45 | NUR ---
PATIENT ON TELEPSYCH
--- NOTE | 2022-02-27 22:00 | NUR ---
[place] [employer] AT BEDSIDE
--- NOTE | 2022-02-27 22:00 | NUR ---
Patient stated that he felt safe here, patient stated that he had no feelings of hurting self or others at this time. Patient laying in bed comfortable. delgado side rails up for safety. bed low and locked.
--- NOTE | 2022-02-27 22:05 | NUR ---
patient that the thoughts of hurting himself were there. but he hasnt had the thoughts since he has been staying here. he stated that the thoughts usually come and go when he is not here. patient calm and cooperative.
--- NOTE | 2022-02-27 22:10 | NUR ---
PATIENT PLACED ON HOLD PER [place] [employer] FOR SI
--- NOTE | 2022-02-28 | NUR ---
patient sitting in bed eating food and drinks at this time.
--- NOTE | 2022-02-28 01:10 | NUR ---
PACKET FAXED TO [facility]
--- NOTE | 2022-02-28 02:00 | NUR ---
Patient stated that he felt safe here, patient stated that he had no feelings of hurting self or others at this time. but stated that he has had them in the past. Patient laying in bed comfortable. delgado side rails up for safety. bed low and locked.
--- NOTE | 2022-02-28 04:00 | NUR ---
patient stated that he would cut his wrist at anytime, but has no availability to carry out plan. Patient stated that he had "no weapon". Patient stated that the thoughts come and go at this time. Patient stated that he felt safe here, patient stated that he had no feelings of hurting self or others at this time. Patient laying in bed comfortable. delgado side rails up for safety. bed low and locked.
--- NOTE | 2022-02-28 06:00 | NUR ---
Patient stated that he felt safe here, patient stated that he had no feelings of hurting self or others at this time. patient stated he has thoughts in the past but not while he is here. Patient laying in bed comfortable. delgado side rails up for safety. bed low and locked.
--- NOTE | 2022-02-28 07:15 | NUR ---
REPORT RECIEVED FROM TORY SULLIVAN
--- NOTE | 2022-02-28 07:16 | NUR ---
Pt report given to NATE Soto. Transfer of care at this time.
--- NOTE | 2022-02-28 07:40 | NUR ---
[place] [employer] OFFICER DOM HERE TO COMPLETE 7585 HOLD
--- NOTE | 2022-02-28 08:05 | NUR ---
PACKET HAS BEEN FAXED TO [facility] PENDING STATUS OF TRANSFER
--- NOTE | 2022-02-28 08:17 | NUR ---
BREAKFAST GIVEN TO PATIENT
--- NOTE | 2022-02-28 08:24 | NUR ---
PATIENT SITTING UP EATING BREAKFAST. SPEAKING TO HIMSELF AT TIMES.
[2022-02-28] MEDS ORDERED: CRUSHER, PILL MC ONE (08:57)
[2022-02-28] MEDS ORDERED: DIVALPROEX 500 MG TABEC PO ONE (09:00)
[2022-02-28] MEDS ORDERED: OLANZapine 5 MG TAB PO SCH (09:00)
[2022-02-28] MEDS: BENZTROPINE 1 MG TAB PO SCH ×2 (09:01→09:05)
--- NOTE | 2022-02-28 09:06 | NUR ---
MEDS GIVEN AND TOLERATED. PATIENT ENGAGING APPROPRIATELY.
--- NOTE | 2022-02-28 11:52 | NUR ---
PT RESTING IN BED SIDE RAILS UP X2. RESP EVEN AND UNLABORED. Q15 CHECKS [address] PL[address]
--- NOTE | 2022-02-28 13:07 | NUR ---
LUNCH TRAY AT BEDSIDE PATIENT EATING. SIDE RAILS UP X1
--- NOTE | 2022-02-28 14:09 | NUR ---
PATIENT TO BE TRANSFERED TO [facility]. ETA OF 1450 Addendum: 02/28/22 at 1426 by CAROLINA *[facility]
--- NOTE | 2022-02-28 14:36 | NUR ---
REPORT GIVEN TO MADAN WU AT [facility] . ETA [id number]
--- NOTE | 2022-02-28 14:48 | NUR ---
[facility] AT BEDSIDE FOR TRANSPORT
--- NOTE | 2022-02-28 14:49 | NUR ---
Patient to be transferred to [facility]. Is being transferred due to HIGHER LEVEL OF CARE. Receiving facility has accepting physician and available space. ER physician has signed transfer form. Patient or responsible alliance party has agreed to transfer and signed form. Patient belongings inventoried and will be sent with patient. Copy of nursing notes, lab reports, EKG, Physicians Orders and X-rays to be sent with patient. Report called to MADAN WU at receiving facility. [facility] ambulance service has been called for transfer. ETA is 1 HR.
[2022-02-28 14:50] VITALS: BP 115/69
== END 2022-02-28 16:08 | disposition psychiatric hospital, planned readmission (93) ==
LOC: MED 17:55
DX: R45.851 Suicidal ideations (principal); Z20.822 Contact with and (suspected) exposure to COVID-19; J45.909 Unspecified asthma, uncomplicated; F17.200 Nicotine dependence, unspecified, uncomplicated; F15.90 Other stimulant use, unspecified, uncomplicated; Z79.899 Other long term (current) drug therapy; Z98.890 Other specified postprocedural states
CPT/HCPCS: 36415; 80053; 80305; 81003; 85025; 87426; 87635; 99285; C9803; G0480; G0482

== ENCOUNTER 2022-05-15 19:30 | Emergency (ER) | payer MEDICAID ==
[~2022-05-15] VITALS: Ht 175.3 cm; Wt 66.2 kg
[2022-05-15 19:52] VITALS: BP 122/94
--- NOTE | 2022-05-15 19:58 | NUR ---
TO LOBBY FOLLOWING TRIAGE
--- NOTE | 2022-05-15 20:15 | NUR ---
PT WENT TO REGISTRATION AND SAID HE WAS LEAVING. LWBS
== END 2022-05-15 20:15 | disposition left against medical advice (07) ==
LOC: MED 19:30
DX: M25.569 Pain in unspecified knee (principal); Z53.21 Procedure and treatment not carried out due to patient leaving prior to being seen by health care provider

== ENCOUNTER 2022-05-16 12:05 | Emergency (ER) | payer MEDICAID ==
[~2022-05-16] VITALS: Ht 175.3 cm; Wt 66.2 kg
--- NOTE | 2022-05-16 12:18 | NUR ---
PT AMBULATED TO BED 06.
[2022-05-16 12:31] VITALS: BP 115/77
[2022-05-16 13:13] LABS: BASOPHILS % (AUTO) 0.8 % (0.0-2.0); EOSINOPHILS # (AUTO) 0.2 K/uL (0-0.4); EOSINOPHILS % (AUTO) 5.4 % (0.0-4.0); HEMATOCRIT 40.9 % (36-52); HEMOGLOBIN 13.6 g/dL (12.0-18.0); LYMPHOCYTES # (AUTO) 1.2 K/uL (2.0-11.5); LYMPHOCYTES % (AUTO) 28.5 % (20.5-51.1); MEAN CORPUSCULAR HEMOGLOBIN 27 pg (27-31); MEAN CORPUSCULAR HGB CONC 33 g/dL (33-37); MEAN CORPUSCULAR VOLUME 81.5 fL (80-94); MONOCYTES # (AUTO) 0.3 K/uL (0.8-1.0); MONOCYTES % (AUTO) 8.1 % (1.7-9.3); NEUTROPHILS # (AUTO) 2.3 K/uL (1.8-7.7); NEUTROPHILS % (AUTO) 57.2 % (42.2-75.2); PLATELET COUNT (AUTO) 339 K/uL (140-450); RED BLOOD CELL COUNT(AUTO) 5.02 MIL/uL (4.20-6.10); WHITE BLOOD COUNT (AUTO) 4.1 K/uL (4.8-10.8)
--- NOTE | 2022-05-16 13:23 | NUR ---
PT AMBULATED TO RESTROOM FOR URINE SAMPLE
--- NOTE | 2022-05-16 13:30 | NUR ---
MARILEE sample obtained walked to lab.
[2022-05-16 13:34] LABS: ALBUMIN 3.7 g/dL (3.4-5.0); ANION GAP 12.3 (8-16); ASPARTATE AMINOTRANSFERASE 19 U/L (15-37); CARBON DIOXIDE 28.8 mmol/L (21-32); CHLORIDE 104 mmol/L (98-107); CREATININE 1.3 mg/dL (0.6-1.3); GFR ARICAN-AMERICAN 75 mL/min (>90); GLUCOSE 75 mg/dL (74-106); POTASSIUM 3.1 mmol/L (3.5-5.1); SALICYLATE < 2.8 mg/dL (2.8-20.0); SODIUM SERUM 142 mmol/L (136-145); TOTAL BILIRUBIN 0.5 mg/dL (0.0-1.0); UREA NITROGEN, BLOOD 19 mg/dL (7-18)
[2022-05-16 13:35] LABS: ACETAMINOPHEN < 0.5 ug/ml (10-30)
--- NOTE | 2022-05-16 13:40 | NUR ---
51 y/o male came in for wanting to hurt others/suicidal ideation x 2 days. When assessing patient he said "he was tired and to just put him down for wanting to hurt others." Patient was seen on 05/15/22 at [facility] for leg pain and anxiety. Patient denies pain. Patient does not have a plan for wanting to hurt others. Medical History: Schizophrenia NKDA
[2022-05-16 13:44] LABS: APPEARANCE,URINE CLEAR (CLEAR); BILIRUBIN,URINE 1+ (NEGATIVE); BLOOD, URINE NEGATIVE (NEGATIVE); COLOR,URINE YELLOW (YELLOW); LEUKOCYTE ESTERASE ,URINE NEGATIVE (NEGATIVE); NITRITE, URINE NEGATIVE (NEGATIVE); PH,URINE 5.5 (5.0-9.0); UGLUCOSE NEGATIVE (NEGATIVE)
[2022-05-16] MEDS ORDERED: POTASSIUM CHLORIDE 10 MEQ TABER PO ONE (14:20)
[2022-05-16 14:29] LABS: RBC,URINE 0-5 /HPF (0-5); WBC,URINE 0-5 /HPF (0-5)
[2022-05-16 14:32] LABS: BARBITURATE, URINE NEGATIVE ng/ml (NEG <=200); BENZODIAZEPINE, URINE NEGATIVE ng/mL (NEG <=200); CANNABINOID, URINE NEGATIVE ng/mL (NEG <=50); COCAINE, URINE NEGATIVE ng/mL (NEG <=300); OPIATE, URINE NEGATIVE ng/mL (NEG <=2000); PHENCYCLIDINE SCREEN,URINE NEGATIVE ng/mL (NEG <=25)
--- NOTE | 2022-05-16 15:50 | NUR ---
PT GIVEN A SANDWHICH AND WATER AT THIS TIME. ALL NEEDS MET.
--- NOTE | 2022-05-16 17:09 | NUR ---
Patient is talking to Telepsych MD.
--- NOTE | 2022-05-16 17:19 | NUR ---
Per Dr. Hadley from [facility] Telepsych patient needs a 5150 Hold, be trasnfered to a psych and facility and [facility] started. Per Dr. Hadley he will input orders.
--- NOTE | 2022-05-16 17:22 | NUR ---
Spoke to [place] orozco [facility] regarding sending a District Administrator to write a 5150 hold. They will send an officer shortly.
[2022-05-16] MEDS: FLUoxetine 10 MG CAP PO SCH (18:01)
--- NOTE | 2022-05-16 18:05 | NUR ---
PER DR. KING DELACRUZ TO HAVE VITALS EVERY 6 HOURS.
--- NOTE | 2022-05-16 18:27 | NUR ---
PATIENT WAS OFFERED MILK AND JOHNNY CRACKERS.
--- NOTE | 2022-05-16 19:31 | NUR ---
Pt report given to NATE Treviño. Transfer of care at this time.
--- NOTE | 2022-05-16 20:57 | NUR ---
[place] [employer] AT BEDSIDE
--- NOTE | 2022-05-16 21:00 | NUR ---
PD AT BEDSIDE FOR 5150 AGENCY
[2022-05-16] MEDS: OLANZapine 5 MG ODT PO SCH (21:36)
--- NOTE | 2022-05-16 22:50 | NUR ---
PT AWAKE AND YELLING . STATES SHE WANTS HER
--- NOTE | 2022-05-16 22:58 | NUR ---
Packet received for placement. Has been fax to the following facilities [facility] MIKEY WYATT
--- NOTE | 2022-05-17 | NUR ---
PT SLEEPING IN SUPINE POSITION. X2 SIDE RAILS UP.
--- NOTE | 2022-05-17 02:00 | NUR ---
Patient appears to be sleeping comfortably in bed. Vital Signs within normal limits. Respirations even and unlabored.
--- NOTE | 2022-05-17 03:50 | NUR ---
pt up and yelling. stating random sentences. pt states she wants and doesnr want to be here
--- NOTE | 2022-05-17 07:24 | NUR ---
Pt report given to MARS. Transfer of care at this time.
--- NOTE | 2022-05-17 07:24 | NUR ---
RECIEVED REPORT FROM NATE WAKEFIELD FOR TRANSFER OF CARE.
--- NOTE | 2022-05-17 08:23 | NUR ---
PATIENT WAS GIVEN BREAKFAST TRAY, PATIENT IS SITTING UP ON BED EATING.
[2022-05-17] MEDS: OLANZapine 5 MG ODT PO SCH (09:09)
[2022-05-17] MEDS: FLUoxetine 10 MG CAP PO SCH (09:09)
--- NOTE | 2022-05-17 10:15 | NUR ---
Patient is sleeping in bed, respirations even and unlabored. All needs met by staff.
--- NOTE | 2022-05-17 12:11 | NUR ---
Patient was offered lunch tray, patient is sitting up on bed eating.
--- NOTE | 2022-05-17 13:01 | NUR ---
[facility] AT BEDSIDE.
[2022-05-17 13:09] VITALS: BP 130/98
--- NOTE | 2022-05-17 13:09 | NUR ---
Patient to be transferred to [facility]. Is being transferred due to HIGHER LEVEL OF CARE. Receiving facility has accepting physician and available space. ER physician has signed transfer form. Patient or responsible libertarian has agreed to transfer and signed form. Patient belongings inventoried and will be sent with patient. Copy of nursing notes, lab reports, EKG, Physicians Orders and X-rays to be sent with patient. Report called to CHEYENNE at receiving facility. [facility] service has been called for transfer. ETA is 25MIN TO FACILITY.
--- NOTE | 2022-05-17 13:10 | NUR ---
The patient's care was reviewed and supervised by Tiffanie Morris RN.
== END 2022-05-17 13:09 ==
LOC: MED 12:05
DX: R45.851 Suicidal ideations (principal); Z20.822 Contact with and (suspected) exposure to COVID-19; J45.909 Unspecified asthma, uncomplicated
CPT/HCPCS: 36415; 80053; 80305; 81001; 85025; 87426; 87635; 93005; 99285; C9803; G0480; G0482

== ENCOUNTER 2022-06-21 18:39 | Emergency (ER) | payer MEDICAID ==
[~2022-06-21] VITALS: Ht 175.3 cm; Wt 63.5 kg
[2022-06-21 18:44] VITALS: BP 143/75
--- NOTE | 2022-06-21 18:45 | NUR ---
Patient taken to bed 5.
--- NOTE | 2022-06-21 18:46 | NUR ---
Lauri suárez in ED - 06/21/22 at 1912 by [email or web address] Removed patient 's belonging as suicidal/psy protocal.
--- NOTE | 2022-06-21 18:46 | NUR ---
Removed patient 's belonging as suicidal/psy protocol.
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
--- NOTE | 2022-06-21 19:21 | NUR ---
Dr. Beach examining patient.
--- NOTE | 2022-06-21 19:30 | NUR ---
REPORT GIVEN TO FEBRUARY RN. ALL QUESTIONS ANSWERED . TRANSFER OF CARE AT THIS TIME
[2022-06-21] MEDS ORDERED: OLANZapine 5 MG ODT PO ONE (19:40)
--- NOTE | 2022-06-21 20:06 | NUR ---
urine sample collected and sent to lab.
[2022-06-21 20:11] LABS: BASOPHILS % (AUTO) 0.6 % (0.0-2.0); EOSINOPHILS # (AUTO) 0.3 K/uL (0-0.4); EOSINOPHILS % (AUTO) 3.4 % (0.0-4.0); HEMATOCRIT 38.1 % (36-52); HEMOGLOBIN 12.8 g/dL (12.0-18.0); LYMPHOCYTES # (AUTO) 1.4 K/uL (2.0-11.5); LYMPHOCYTES % (AUTO) 18.3 % (20.5-51.1); MEAN CORPUSCULAR HEMOGLOBIN 27 pg (27-31); MEAN CORPUSCULAR HGB CONC 34 g/dL (33-37); MEAN CORPUSCULAR VOLUME 81.5 fL (80-94); MONOCYTES # (AUTO) 0.4 K/uL (0.8-1.0); MONOCYTES % (AUTO) 4.6 % (1.7-9.3); NEUTROPHILS # (AUTO) 5.7 K/uL (1.8-7.7); NEUTROPHILS % (AUTO) 73.1 % (42.2-75.2); PLATELET COUNT (AUTO) 302 K/uL (140-450); RED BLOOD CELL COUNT(AUTO) 4.68 MIL/uL (4.20-6.10); RED CELL DISTRIBUTION WIDTH 14.7 % (11.6-13.7); WHITE BLOOD COUNT (AUTO) 7.8 K/uL (4.8-10.8)
[2022-06-21 21:02] LABS: BARBITURATE, URINE NEGATIVE ng/ml (NEG <=200); BENZODIAZEPINE, URINE NEGATIVE ng/mL (NEG <=200); CANNABINOID, URINE NEGATIVE ng/mL (NEG <=50); COCAINE, URINE NEGATIVE ng/mL (NEG <=300); OPIATE, URINE NEGATIVE ng/mL (NEG <=2000); PHENCYCLIDINE SCREEN,URINE NEGATIVE ng/mL (NEG <=25)
[2022-06-21 21:06] LABS: CHLORIDE 104 mmol/L (98-107); CREATININE 0.9 mg/dL (0.6-1.3); GFR ARICAN-AMERICAN 114 mL/min (>90); SODIUM SERUM 140 mmol/L (136-145)
[2022-06-21 21:09] LABS: ACETAMINOPHEN < 0.5 ug/ml (10-30)
[2022-06-21 21:24] LABS: ALBUMIN 3.6 g/dL (3.4-5.0); ANION GAP 10.8 (8-16); ASPARTATE AMINOTRANSFERASE 18 U/L (15-37); CARBON DIOXIDE 29.5 mmol/L (21-32); GLUCOSE 86 mg/dL (74-106); POTASSIUM 4.3 mmol/L (3.5-5.1); SALICYLATE < 2.8 mg/dL (2.8-20.0); TOTAL BILIRUBIN 0.2 mg/dL (0.0-1.0); UREA NITROGEN, BLOOD 22 mg/dL (7-18)
--- NOTE | 2022-06-21 21:32 | NUR ---
Patient appears to be resting comfortably in bed. Vital Signs within normal limits. Respirations even and unlabored.
--- NOTE | 2022-06-21 23:14 | NUR ---
Patient is sleeping
--- NOTE | 2022-06-22 00:14 | NUR ---
Patient appears to be resting comfortably in bed. Vital Signs within normal limits. Respirations even and unlabored.
--- NOTE | 2022-06-22 02:08 | NUR ---
Patient is sleeping.
--- NOTE | 2022-06-22 04:22 | NUR ---
Patient is sleeping.
--- NOTE | 2022-06-22 05:34 | NUR ---
Patient appears to be resting comfortably in bed. Vital Signs within normal limits. Respirations even and unlabored.
--- NOTE | 2022-06-22 07:05 | NUR ---
COVID-19 (PCR) swabs collected and sent to lab.
--- NOTE | 2022-06-22 07:18 | NUR ---
Report given to NATE Doll and endorse care of patient.
--- NOTE | 2022-06-22 07:19 | NUR ---
Report recieved from JAZMIN Buenrostro for transfer of care.
--- NOTE | 2022-06-22 08:26 | NUR ---
Dr. Torres evaluating patient at bedside.
--- NOTE | 2022-06-22 08:31 | NUR ---
Patient is sitting up on bed, eating breakfast.
--- NOTE | 2022-06-22 08:36 | NUR ---
Reckristinaveid orders from Dr. Torres for Depakote 500mg BID PO and Zyprexa 5 mg PO BID.
--- NOTE | 2022-06-22 08:43 | NUR ---
Called and spoke to Meghana at [facility] Department to get an officer to come write a 5150 hold on patient. An officer will be sent out when one is available.
[2022-06-22] MEDS ORDERED: OLANZapine 5 MG ODT PO ONE (09:00)
[2022-06-22] MEDS ORDERED: DIVALPROEX 500 MG TABEC PO ONE (09:00)
--- NOTE | 2022-06-22 09:15 | NUR ---
[place] [employer] at bedside
--- NOTE | 2022-06-22 11:37 | NUR ---
Packet received and faxed to: Pancho BHAGAT/Angie intake [facility]
--- NOTE | 2022-06-22 12:19 | NUR ---
Patient is sitting up on bed, eating lunch.
--- NOTE | 2022-06-22 14:30 | NUR ---
Patient to be transferred to [facility]. Is being transferred due to Higher level of care. Receiving facility has accepting physician and available space. ER physician has signed transfer form. Patient or responsible constitution party has agreed to transfer and signed form. Patient belongings inventoried and will be sent with patient. Copy of nursing notes, lab reports, EKG, Physicians Orders and X-rays to be sent with patient. Report called to Jo at receiving facility. ambulance service has been called for transfer. ETA is 90 minutes.
--- NOTE | 2022-06-22 15:02 | NUR ---
Patient is laying in bed, respirations even and unlabored. No signs of distress noted.
[2022-06-22 15:36] VITALS: BP 134/92
--- NOTE | 2022-06-22 15:36 | NUR ---
[facility] at bedside to transport patient.
--- NOTE | 2022-06-22 15:45 | NUR ---
Chart checked and completed. The patient's care was reviewed and supervised by Rosario Marvin RN.
== END 2022-06-22 15:36 ==
LOC: MED 18:39
DX: R45.851 Suicidal ideations (principal); Z20.822 Contact with and (suspected) exposure to COVID-19; J45.909 Unspecified asthma, uncomplicated; F20.9 Schizophrenia, unspecified; Z79.899 Other long term (current) drug therapy
CPT/HCPCS: 36415; 80053; 80305; 85025; 87426; 87635; 99285; C9803; G0480; G0482

== ENCOUNTER 2022-07-15 11:23 | Emergency (ER) | payer MEDICAID ==
[~2022-07-15] VITALS: Ht 175.3 cm; Wt 65.8 kg
[2022-07-15 11:54] VITALS: BP 133/75
--- NOTE | 2022-07-15 12:02 | NUR ---
Pt taken to bed 5. Patient in hospital gown. Personal belongings removed from room and stored with security. Patient states having thoughts of harming self. Potentially harmful items removed from room. Under direct observation of sitter.
--- NOTE | 2022-07-15 12:05 | NUR ---
Patient being evaluated by physician at bedside.
[2022-07-15] MEDS ORDERED: OLANZapine 5 MG ODT PO ONE (12:10)
--- NOTE | 2022-07-15 12:10 | NUR ---
51/M presents to ED, states he wants to be sent to a pyschiatric facility. Pt states "I have severe depressive disorder and schizophrenia. I'd like to be sent to a psychiatric facility." Pt is talking to himself and having full converstations with himself. Pt is able to be re-oriented when asking questions but as soon as he addresses the question he goes back into talking to himself. Patient is anxious but cooperative. VSS. Pt states he has thoughts of hurting himself. Does not have a plan.
[2022-07-15 12:25] LABS: APPEARANCE,URINE CLEAR (CLEAR); BILIRUBIN,URINE NEGATIVE (NEGATIVE); BLOOD, URINE NEGATIVE (NEGATIVE); COLOR,URINE YELLOW (YELLOW); LEUKOCYTE ESTERASE ,URINE NEGATIVE (NEGATIVE); NITRITE, URINE NEGATIVE (NEGATIVE); UGLUCOSE NEGATIVE (NEGATIVE)
[2022-07-15 12:35] LABS: BASOPHILS % (AUTO) 0.6 % (0.0-2.0); EOSINOPHILS # (AUTO) 0.3 K/uL (0-0.4); EOSINOPHILS % (AUTO) 4.6 % (0.0-4.0); HEMATOCRIT 36.3 % (36-52); HEMOGLOBIN 12.1 g/dL (12.0-18.0); LYMPHOCYTES # (AUTO) 1.3 K/uL (2.0-11.5); LYMPHOCYTES % (AUTO) 21.2 % (20.5-51.1); MEAN CORPUSCULAR HEMOGLOBIN 27 pg (27-31); MEAN CORPUSCULAR HGB CONC 33 g/dL (33-37); MEAN CORPUSCULAR VOLUME 81.8 fL (80-94); MONOCYTES # (AUTO) 0.3 K/uL (0.8-1.0); MONOCYTES % (AUTO) 5.7 % (1.7-9.3); NEUTROPHILS # (AUTO) 4.1 K/uL (1.8-7.7); NEUTROPHILS % (AUTO) 67.9 % (42.2-75.2); PLATELET COUNT (AUTO) 286 K/uL (140-450); RED BLOOD CELL COUNT(AUTO) 4.43 MIL/uL (4.20-6.10); RED CELL DISTRIBUTION WIDTH 14.8 % (11.6-13.7); WHITE BLOOD COUNT (AUTO) 6.1 K/uL (4.8-10.8)
[2022-07-15 12:48] LABS: BARBITURATE, URINE NEGATIVE ng/ml (NEG <=200); BENZODIAZEPINE, URINE NEGATIVE ng/mL (NEG <=200); CANNABINOID, URINE NEGATIVE ng/mL (NEG <=50); COCAINE, URINE NEGATIVE ng/mL (NEG <=300); PHENCYCLIDINE SCREEN,URINE NEGATIVE ng/mL (NEG <=25)
[2022-07-15 12:49] LABS: OPIATE, URINE NEGATIVE ng/mL (NEG <=2000)
[2022-07-15 13:02] LABS: ALBUMIN 3.3 g/dL (3.4-5.0); ANION GAP 15.7 (8-16); ASPARTATE AMINOTRANSFERASE 20 U/L (15-37); CARBON DIOXIDE 25.1 mmol/L (21-32); CHLORIDE 104 mmol/L (98-107); CREATININE 0.8 mg/dL (0.6-1.3); GFR ARICAN-AMERICAN 131 mL/min (>90); GLUCOSE 94 mg/dL (74-106); POTASSIUM 3.8 mmol/L (3.5-5.1); SODIUM SERUM 141 mmol/L (136-145); TOTAL BILIRUBIN 0.2 mg/dL (0.0-1.0); UREA NITROGEN, BLOOD 26 mg/dL (7-18)
[2022-07-15 13:04] LABS: SALICYLATE < 2.8 mg/dL (2.8-20.0)
[2022-07-15 13:05] LABS: ACETAMINOPHEN < 0.5 ug/ml (10-30)
[2022-07-15 14:11] VITALS: BP 123/70
== END 2022-07-15 14:16 | disposition home or self-care (01) ==
LOC: MED 11:23
DX: F29 Unspecified psychosis not due to a substance or known physiological condition (principal); F15.129 Other stimulant abuse with intoxication, unspecified; F19.10 Other psychoactive substance abuse, uncomplicated; F20.9 Schizophrenia, unspecified
CPT/HCPCS: 36415; 80053; 80305; 81003; 85025; 99283; G0480; G0482; 81002; 93005

== ENCOUNTER 2022-07-17 10:20 | Emergency (ER) | payer MEDICAID ==
[~2022-07-17] VITALS: Ht 170.2 cm; Wt 64.4 kg
[2022-07-17 10:24] VITALS: BP 112/74
--- NOTE | 2022-07-17 10:27 | NUR ---
PT AMBULATED TO ER BED 5
[2022-07-17 11:15] LABS: BASOPHILS % (AUTO) 0.7 % (0.0-2.0); EOSINOPHILS # (AUTO) 0.3 K/uL (0-0.4); EOSINOPHILS % (AUTO) 5.7 % (0.0-4.0); HEMATOCRIT 37.3 % (36-52); HEMOGLOBIN 12.4 g/dL (12.0-18.0); LYMPHOCYTES # (AUTO) 1.3 K/uL (2.0-11.5); LYMPHOCYTES % (AUTO) 24.1 % (20.5-51.1); MEAN CORPUSCULAR HEMOGLOBIN 27 pg (27-31); MEAN CORPUSCULAR HGB CONC 33 g/dL (33-37); MEAN CORPUSCULAR VOLUME 81.8 fL (80-94); MONOCYTES # (AUTO) 0.3 K/uL (0.8-1.0); MONOCYTES % (AUTO) 6.1 % (1.7-9.3); NEUTROPHILS # (AUTO) 3.4 K/uL (1.8-7.7); NEUTROPHILS % (AUTO) 63.4 % (42.2-75.2); PLATELET COUNT (AUTO) 317 K/uL (140-450); RED BLOOD CELL COUNT(AUTO) 4.55 MIL/uL (4.20-6.10); RED CELL DISTRIBUTION WIDTH 14.9 % (11.6-13.7); WHITE BLOOD COUNT (AUTO) 5.4 K/uL (4.8-10.8)
[2022-07-17 11:27] LABS: APPEARANCE,URINE CLEAR (CLEAR); BILIRUBIN,URINE NEGATIVE (NEGATIVE); BLOOD, URINE NEGATIVE (NEGATIVE); COLOR,URINE YELLOW (YELLOW); LEUKOCYTE ESTERASE ,URINE NEGATIVE (NEGATIVE); NITRITE, URINE NEGATIVE (NEGATIVE); UGLUCOSE NEGATIVE (NEGATIVE)
[2022-07-17 11:28] LABS: ALBUMIN 3.3 g/dL (3.4-5.0); ASPARTATE AMINOTRANSFERASE 13 U/L (15-37); CARBON DIOXIDE 25.5 mmol/L (21-32); GFR ARICAN-AMERICAN 101 mL/min (>90); GLUCOSE 120 mg/dL (74-106); TOTAL BILIRUBIN 0.2 mg/dL (0.0-1.0); UREA NITROGEN, BLOOD 21 mg/dL (7-18)
[2022-07-17 11:42] LABS: ANION GAP 14.1 (8-16); CHLORIDE 105 mmol/L (98-107); POTASSIUM 3.6 mmol/L (3.5-5.1); SODIUM SERUM 141 mmol/L (136-145)
[2022-07-17 11:43] LABS: BARBITURATE, URINE NEGATIVE ng/ml (NEG <=200); BENZODIAZEPINE, URINE NEGATIVE ng/mL (NEG <=200); CANNABINOID, URINE NEGATIVE ng/mL (NEG <=50); COCAINE, URINE NEGATIVE ng/mL (NEG <=300); OPIATE, URINE NEGATIVE ng/mL (NEG <=2000); PHENCYCLIDINE SCREEN,URINE NEGATIVE ng/mL (NEG <=25)
[2022-07-17 11:44] LABS: SALICYLATE < 2.8 mg/dL (2.8-20.0)
[2022-07-17 11:46] LABS: ACETAMINOPHEN < 0.5 ug/ml (10-30)
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
--- NOTE | 2022-07-17 13:15 | NUR ---
Dr. Yung evaluating patient at bedside.
--- NOTE | 2022-07-17 14:16 | NUR ---
PT BEING EVALUATED BY DR ARMSTRONG, TELEPSYCH AT THIS TIME
--- NOTE | 2022-07-17 15:28 | NUR ---
Snack provided to patient.
[2022-07-17] MEDS ORDERED: OLANZapine 5 MG ODT PO ONE (16:15)
[2022-07-17] MEDS ORDERED: DIVALPROEX 500 MG TABEC PO ONE (16:15)
--- NOTE | 2022-07-17 17:53 | NUR ---
Patient was given his dinner tray. Patient is sitting up on bed, eating dinner.
--- NOTE | 2022-07-17 17:56 | NUR ---
Dr. Oscar evaluating patient at bedside.
--- NOTE | 2022-07-17 18:24 | NUR ---
Patient is resting on bed, respirations even and unlabored. All needs met by staff.
--- NOTE | 2022-07-17 19:28 | NUR ---
Report given to JAZMIN Ocasio for transfer of care.
--- NOTE | 2022-07-17 19:38 | NUR ---
Officer Juliette, [facility], assessed patient and stated she is "going to write 5150 hold."
--- NOTE | 2022-07-17 20:10 | NUR ---
Note undone in [facility] - 07/17/22 at 2039 by [id number] PT IS ON A 5150 HOLD . A&OX4. ON BEDSIDE CREW FOREMAN. PT HAS MADE SI STATEMENTS. IS VERY TEARFUL AND VERBALIZING WANTING TO SEE HER FAMILY. RESP EVEN AND UNLABORED. ALL ITEMS REMOVED FOR PT SAFETY. PT IS IN VIEW BED AT LOWEST POSITION. 15Q SI CHECKS Addendum: 07/17/22 at 2010 by [id number] Amendment undone in ED - 07/17/22 at 2039 by [id number] PT IS ON A 5150 HOLD . A&OX4. ON BEDSIDE CREW FOREMAN. PT HAS MADE SI STATEMENTS. IS VERY TEARFUL AND VERBALIZING WANTING TO SEE HER FAMILY. RESP EVEN AND UNLABORED. ALL ITEMS REMOVED FOR PT SAFETY. PT IS IN VIEW BED AT LOWEST POSITION. 15Q SI CHECKS
--- NOTE | 2022-07-17 20:11 | NUR ---
PT IS ON A 5150 HOLD . A&OX4. ON BEDSIDE GROUP FITNESS MANAGER. PT HAS MADE SI STATEMENTS OF "WANTING TO CUT HIS WRIST." RESP EVEN AND UNLABORED. ALL ITEMS REMOVED FOR PT SAFETY. PT IS IN VIEW BED AT LOWEST POSITION. 15Q SI CHECKS, ALL NEEDS MET, INCLUDING FOOD, HYDRATION, AND TOILETING.
[2022-07-17] MEDS ORDERED: diphenhydrAMINE 50 MG CAP PO ONE (20:55)
[2022-07-17] MEDS ORDERED: OLANZapine 5 MG ODT PO SCH (21:00)
[2022-07-17] MEDS ORDERED: DIVALPROEX 500 MG TABEC PO SCH (21:00)
--- NOTE | 2022-07-17 21:05 | NUR ---
PT IS ON A 5150 HOLD . A&OX4. ON BEDSIDE HOSPICE AIDE. PT HAS MADE SI STATEMENTS OF "WANTING TO CUT HIS WRIST." RESP EVEN AND UNLABORED. ALL ITEMS REMOVED FOR PT SAFETY. PT IS IN VIEW BED AT LOWEST POSITION. 15Q SI CHECKS, ALL NEEDS MET, INCLUDING FOOD, HYDRATION, AND TOILETING.
--- NOTE | 2022-07-17 22:07 | NUR ---
PT IS ON A 5150 HOLD . A&OX4. ON BEDSIDE SHEET ROCK TAPER. PT HAS MADE SI STATEMENTS OF "WANTING TO CUT HIS WRIST." RESP EVEN AND UNLABORED. ALL ITEMS REMOVED FOR PT SAFETY. PT IS IN VIEW BED AT LOWEST POSITION. 15Q SI CHECKS, ALL NEEDS MET, INCLUDING FOOD, HYDRATION, AND TOILETING.
--- NOTE | 2022-07-17 23:00 | NUR ---
PT IS ON A 5150 HOLD . A&OX4. ON BEDSIDE TRACTOR OPERATOR BATTERY. PT HAS MADE SI STATEMENTS OF "WANTING TO CUT HIS WRIST." RESP EVEN AND UNLABORED. ALL ITEMS REMOVED FOR PT SAFETY. PT IS IN VIEW BED AT LOWEST POSITION. 15Q SI CHECKS, ALL NEEDS MET, INCLUDING FOOD, HYDRATION, AND TOILETING.
--- NOTE | 2022-07-17 23:01 | NUR ---
PT IS ON A 5150 HOLD . A&OX4. ON BEDSIDE FAMILY WORKER. PT HAS MADE SI STATEMENTS OF "WANTING TO CUT HIS WRIST." RESP EVEN AND UNLABORED. ALL ITEMS REMOVED FOR PT SAFETY. PT IS IN VIEW BED AT LOWEST POSITION. 15Q SI CHECKS, ALL NEEDS MET, INCLUDING FOOD, HYDRATION, AND TOILETING.
--- NOTE | 2022-07-18 00:02 | NUR ---
PT IS ON A 5150 HOLD . A&OX4. ON BEDSIDE VIDEOGRAPHER. PT HAS MADE SI STATEMENTS OF "WANTING TO CUT HIS WRIST." RESP EVEN AND UNLABORED. ALL ITEMS REMOVED FOR PT SAFETY. PT IS IN VIEW BED AT LOWEST POSITION. 15Q SI CHECKS, ALL NEEDS MET, INCLUDING FOOD, HYDRATION, AND TOILETING.
--- NOTE | 2022-07-18 01:36 | NUR ---
PT IS ON A 5150 HOLD . A&OX4. ON BEDSIDE MOPHEAD TRIMMER AND WRAPPER. PT HAS MADE SI STATEMENTS OF "WANTING TO CUT HIS WRIST." RESP EVEN AND UNLABORED. ALL ITEMS REMOVED FOR PT SAFETY. PT IS IN VIEW BED AT LOWEST POSITION. 15Q SI CHECKS, ALL NEEDS MET, INCLUDING FOOD, HYDRATION, AND TOILETING.
--- NOTE | 2022-07-18 02:00 | NUR ---
PT IS ON A 5150 HOLD . A&OX4. ON BEDSIDE PEDIATRIC UROLOGIST. PT HAS MADE SI STATEMENTS OF "WANTING TO CUT HIS WRIST." RESP EVEN AND UNLABORED. ALL ITEMS REMOVED FOR PT SAFETY. PT IS IN VIEW BED AT LOWEST POSITION. 15Q SI CHECKS, ALL NEEDS MET, INCLUDING FOOD, HYDRATION, AND TOILETING.
--- NOTE | 2022-07-18 03:03 | NUR ---
PT IS ON A 5150 HOLD . A&OX4. ON BEDSIDE SUPERVISOR BELT AND LINK ASSEMBLY. PT HAS MADE SI STATEMENTS OF "WANTING TO CUT HIS WRIST." RESP EVEN AND UNLABORED. ALL ITEMS REMOVED FOR PT SAFETY. PT IS IN VIEW BED AT LOWEST POSITION. 15Q SI CHECKS, ALL NEEDS MET, INCLUDING FOOD, HYDRATION, AND TOILETING.
--- NOTE | 2022-07-18 04:05 | NUR ---
PT IS ON A 5150 HOLD . A&OX4. ON BEDSIDE MACHINE MAINTENANCE SERVICER. PT HAS MADE SI STATEMENTS OF "WANTING TO CUT HIS WRIST." RESP EVEN AND UNLABORED. ALL ITEMS REMOVED FOR PT SAFETY. PT IS IN VIEW BED AT LOWEST POSITION. 15Q SI CHECKS, ALL NEEDS MET, INCLUDING FOOD, HYDRATION, AND TOILETING.
--- NOTE | 2022-07-18 05:28 | NUR ---
PT IS ON A 5150 HOLD . A&OX4. ON BEDSIDE MANAGER HYDRAULIC. PT HAS MADE SI STATEMENTS OF "WANTING TO CUT HIS WRIST." RESP EVEN AND UNLABORED. ALL ITEMS REMOVED FOR PT SAFETY. PT IS IN VIEW BED AT LOWEST POSITION. 15Q SI CHECKS, ALL NEEDS MET, INCLUDING FOOD, HYDRATION, AND TOILETING.
--- NOTE | 2022-07-18 06:10 | NUR ---
PT IS ON A 5150 HOLD . A&OX4. ON BEDSIDE ENROLLMENT CONSULTANT. PT HAS MADE SI STATEMENTS OF "WANTING TO CUT HIS WRIST." RESP EVEN AND UNLABORED. ALL ITEMS REMOVED FOR PT SAFETY. PT IS IN VIEW BED AT LOWEST POSITION. 15Q SI CHECKS, ALL NEEDS MET, INCLUDING FOOD, HYDRATION, AND TOILETING.
--- NOTE | 2022-07-18 07:14 | NUR ---
PT IS ON A 5150 HOLD . A&OX4. ON BEDSIDE CORE CUTTER AND REAMER. PT HAS MADE SI STATEMENTS OF "WANTING TO CUT HIS WRIST." RESP EVEN AND UNLABORED. ALL ITEMS REMOVED FOR PT SAFETY. PT IS IN VIEW BED AT LOWEST POSITION. 15Q SI CHECKS, ALL NEEDS MET, INCLUDING FOOD, HYDRATION, AND TOILETING.
--- NOTE | 2022-07-18 07:16 | NUR ---
Change of shift report given to Sharmila SULLIVAN. Sharmila SULLIVAN verbalized understanding of report, no further questions.
--- NOTE | 2022-07-18 07:19 | NUR ---
Report recieved from JAZMIN Ocasio for transfer of care.
--- NOTE | 2022-07-18 08:31 | NUR ---
Patient was offered his breakfast tray. Patient is sitting up eating breakfast.
--- NOTE | 2022-07-18 09:53 | NUR ---
Patient ambulated to restroom with steady gait.
--- NOTE | 2022-07-18 11:12 | NUR ---
Patient is laying in bed, respirations even and unlabored. All needs met by staff.
--- NOTE | 2022-07-18 12:25 | NUR ---
Patient was offeredlunch tray. Patient is sitting up eating lunch.
--- NOTE | 2022-07-18 14:56 | NUR ---
Patient to be transferred to [facility]. Is being transferred due to HIGHER LEVEL OF CARE. Receiving facility has accepting physician and available space. ER physician has signed transfer form. Patient or responsible green party has agreed to transfer and signed form. Patient belongings inventoried and will be sent with patient. Copy of nursing notes, lab reports, EKG, Physicians Orders and X-rays to be sent with patient. Report called to WILY at receiving facility. [facility] ambulance service has been called for transfer. ETA is 45 MINUTES.
[2022-07-18 16:09] VITALS: BP 131/73
--- NOTE | 2022-07-18 16:09 | NUR ---
[facility] BEDSIDE FOR PATIENT TRANSPORT
--- NOTE | 2022-07-18 16:23 | NUR ---
The patient's care was reviewed and supervised by Melonie Gutierrez RN.
== END 2022-07-18 16:06 ==
LOC: MED 10:20
DX: R45.851 Suicidal ideations (principal); Z20.822 Contact with and (suspected) exposure to COVID-19; F15.10 Other stimulant abuse, uncomplicated; F20.9 Schizophrenia, unspecified; F32.9 Major depressive disorder, single episode, unspecified; J45.909 Unspecified asthma, uncomplicated; Z91.14 Patient's other noncompliance with medication regimen; Z79.899 Other long term (current) drug therapy
CPT/HCPCS: 36415; 80053; 80305; 81003; 85025; 87426; 87635; 99285; C9803; G0480; G0482; Q0163

== ENCOUNTER 2022-08-04 13:40 | Emergency (ER) | payer MEDICAID ==
--- NOTE | 2022-08-04 14:30 | NUR ---
CALLED X1. NO SHOW. Addendum: 08/04/22 at 1540 by [facility] PATIENT LEFT WITHOUT BEING SEEN BY DR. BAINS. NO FURTHER CARE PROVIDED FOR PATIENT.
--- NOTE | 2022-08-04 15:00 | NUR ---
CALLED FOR TRIAGE, NO ANSWER
--- NOTE | 2022-08-04 15:30 | NUR ---
CALLED X3. NO SHOW.
== END 2022-08-04 17:30 | disposition left against medical advice (07) ==
LOC: MED 13:40
DX: M25.569 Pain in unspecified knee (principal); Z53.21 Procedure and treatment not carried out due to patient leaving prior to being seen by health care provider

== ENCOUNTER 2022-08-30 17:43 | Emergency (ER) | payer MEDICAID ==
[~2022-08-30] VITALS: Ht 175.3 cm; Wt 64.0 kg
[2022-08-30 18:05] VITALS: BP 142/74
--- NOTE | 2022-08-30 20:05 | NUR ---
PT CALLED BACK BY MELANI ROSALES. NO ANSWER.
== END 2022-08-30 20:07 | disposition left against medical advice (07) ==
LOC: MED 17:43
DX: R09.81 Nasal congestion (principal); Z76.0 Encounter for issue of repeat prescription; G89.29 Other chronic pain; M25.511 Pain in right shoulder; M25.512 Pain in left shoulder; M25.561 Pain in right knee; M25.562 Pain in left knee; Z53.21 Procedure and treatment not carried out due to patient leaving prior to being seen by health care provider

== ENCOUNTER 2022-09-05 20:27 | Emergency (ER) | payer MEDICAID ==
[~2022-09-05] VITALS: Ht 175.3 cm; Wt 65.8 kg
--- NOTE | 2022-09-05 22:03 | NUR ---
Called no show in lobby or outside.
[2022-09-05 22:47] VITALS: BP 120/85
--- NOTE | 2022-09-05 23:11 | NUR ---
Dr. Beck examining patient.
[2022-09-05] MEDS ORDERED: IBUP-2213 PO (23:19)
[2022-09-05] MEDS ORDERED: VALP-22 GT (23:19)
[2022-09-06 00:02] VITALS: BP 120/85
--- NOTE | 2022-09-06 00:02 | NUR ---
Patient discharged with v/s stable. Written and verbal after care instructions given and explained. Patient alert, oriented and verbalized understanding of instructions. Ambulatory with steady gait. All questions addressed prior to discharge. ID band removed. Patient advised to follow up with PMD. Rx of Ibuprofen and Depakene given. Patient educated on indication of medication including possible reaction and side effects. Opportunity to ask questions provided and answered.
== END 2022-09-06 00:02 | disposition home or self-care (01) ==
LOC: MED 20:27
DX: J45.909 Unspecified asthma, uncomplicated (principal); F15.90 Other stimulant use, unspecified, uncomplicated; Z76.0 Encounter for issue of repeat prescription
CPT/HCPCS: 99283

== ENCOUNTER 2022-10-02 11:00 | Emergency (ER) | payer MEDICAID ==
[~2022-10-02] VITALS: Ht 175.3 cm; Wt 72.6 kg
[2022-10-02 11:17] VITALS: BP 110/70
--- NOTE | 2022-10-02 11:20 | NUR ---
PT AMBULATED TO LOBBY
[2022-10-02] MEDS ORDERED: BEN50 PO (12:47)
[2022-10-02] MEDS ORDERED: INTUBATION KIT MC ONE (13:31)
[2022-10-02 13:45] VITALS: BP 110/70
--- NOTE | 2022-10-02 13:45 | NUR ---
Patient discharged with v/s stable. Written and verbal after care instructions given and explained. Patient alert, oriented and verbalized understanding of instructions. Ambulatory with steady gait. All questions addressed prior to discharge. ID band removed. Patient advised to follow up with PMD. Rx of benadryl (sent) given. Patient educated on indication of medication including possible reaction and side effects. Opportunity to ask questions provided and answered.
== END 2022-10-02 13:45 | disposition home or self-care (01) ==
LOC: MED 11:00
DX: G47.00 Insomnia, unspecified (principal); J45.909 Unspecified asthma, uncomplicated; Z79.899 Other long term (current) drug therapy
CPT/HCPCS: 99283